=== PATIENT | male | born 1965 | race Caucasian/White ===

== ENCOUNTER 2020-11-02 16:41 | Emergency (ER) | payer MEDICARE ==
[~2020-11-02] VITALS: Ht 165.1 cm; Wt 99.8 kg
[~2020-11-02 16:41] MED LIST changes: -FENTANYL CITRATE/PF 100MCG/2 ML INJ ONE; -KETAMINE HCL INJ 50 MG/ML 10 ML VIAL ONE; -MIDAZOLAM HCL 2 MG/2 ML VIAL ONE; -PROPOFOL IV EMULSION 10 MG/ML 20 ML VIAL ONE
[2020-11-02 18:58] VITALS: BP 124/75
== END 2020-11-02 19:03 | disposition home or self-care (01) ==
LOC: ER 17:22
DX: S00.83XA Contusion of other part of head, initial encounter (principal); R42 Dizziness and giddiness; W01.0XXA Fall on same level from slipping, tripping and stumbling without subsequent striking against object, initial encounter; Y92.238 Other place in hospital as the place of occurrence of the external cause; E11.9 Type 2 diabetes mellitus without complications; E78.5 Hyperlipidemia, unspecified; F43.10 Post-traumatic stress disorder, unspecified
CPT/HCPCS: 70450; 70486; 72125; 99282

== ENCOUNTER → 2020-11-02 | Day surgery (SDC) | payer BC, MEDICARE, OTHER ==
[~2020-11-02] MED LIST: ALPRAZOLAM0.5 MG PO; ATORVASTATIN CA20 MG PO; CYMBALTA60 MG PO; DEPAKOTE ER250 MG PO; FENTANYL CITRATE/PF 100MCG/2 ML INJ ONE; FOLIC ACID0.4 MG PO; GABAPENTIN600 MG PO; GLIMEPIRIDE4 MG PO; HYDROXYZINE HCL50 MG PO; IRON PO; KETAMINE HCL INJ 50 MG/ML 10 ML VIAL ONE; LANTUS100 UNITS/ INJ; LISINOPRIL2.5 MG PO; LYRICA50 MG PO; MELOXICAM15 MG PO; METFORMIN HCL1000 MG PO; METHOCARBAMOL750 MG PO; MIDAZOLAM HCL 2 MG/2 ML VIAL ONE; MORPHINE SULFAT30 M2 PO; MULTI-VITAMIN1 EACH PO; NORCO 10-325 T1 EACH PO; OMEPRAZOLE40 MG PO; PERCOCET 10-321 EACH PO; PROPOFOL IV EMULSION 10 MG/ML 20 ML VIAL ONE; SERTRALINE HCL100 MG PO; SIMVASTATIN40 MG PO; SKELAXIN800 MG PO; TESTOSTERO200 MG/1 M IM; TOPIRAMATE100 MG PO; TRAZODONE HCL50 MG PO; ULTRAM50 MG PO; VICTOZA 3-0.6 MG/0.1 SQ; VITAMIN C500 MG PO; VITAMIN D3250 MCG PO; ZINC PO
[2020-11-02 16:25] VITALS: BP 143/66
== END | disposition home or self-care (01) ==
LOC: OR 15:44
PROVIDERS: ATTEND Internal Medicine Gastroenterology
DX: Z12.11 Encounter for screening for malignant neoplasm of colon (principal); D12.8 Benign neoplasm of rectum; K29.70 Gastritis, unspecified, without bleeding; K21.9 Gastro-esophageal reflux disease without esophagitis; K44.9 Diaphragmatic hernia without obstruction or gangrene; K57.30 Diverticulosis of large intestine without perforation or abscess without bleeding; K64.8 Other hemorrhoids; E11.9 Type 2 diabetes mellitus without complications; I10 Essential (primary) hypertension; G62.9 Polyneuropathy, unspecified; M54.5 Low back pain; E78.5 Hyperlipidemia, unspecified; F43.10 Post-traumatic stress disorder, unspecified; Z88.8 Allergy status to other drugs, medicaments and biological substances; Z01.810 Encounter for preprocedural cardiovascular examination; Z01.812 Encounter for preprocedural laboratory examination; Z20.822 Contact with and (suspected) exposure to COVID-19; Z79.82 Long term (current) use of aspirin; Z79.4 Long term (current) use of insulin; Z68.41 Body mass index [BMI] 40.0-44.9, adult; Z83.79 Family history of other diseases of the digestive system
CPT/HCPCS: 36415; 43239; 45380; 82948; 88305; 88312; 93005; J2250; J2704; J3010; U0002; 45378; 45384